=== PATIENT | male | born 1990 | race Caucasian/White ===

== ENCOUNTER 2024-07-06 12:37 | Emergency (ER) | payer BC, OTHER ==
[2024-07-06] MEDS: HYDROmorphone 1 MG/ML Syringe IM ONE (13:48)
[2024-07-06] MEDS: Ketorolac 60 MG/2 ML SDV IM ONE (13:49)
== END 2024-07-06 14:57 | disposition home or self-care (01) ==
LOC: JD.ED 12:37 → MERGE 12:37 → JD.ED 14:57
DX: S82.231A Displaced oblique fracture of shaft of right tibia, initial encounter for closed fracture (principal); W19.XXXA Unspecified fall, initial encounter; W22.8XXA Striking against or struck by other objects, initial encounter; Y99.0 Civilian activity done for income or pay; Y92.89 Other specified places as the place of occurrence of the external cause
CPT/HCPCS: 73590; 73610; 96372; 99283; J1171; J1885; 99284